=== PATIENT | female | born 1960 | race Caucasian/White ===

== ENCOUNTER → 2021-05-30 | Outpatient (CLI) | payer OTHER ==
[~2021-05-30] MED LIST: NORCO 5-325 TA1 EACH PO; ZOFRAN ODT 4 MG4 MG SL
== END ==
LOC: CT 14:30
DX: E83.52 Hypercalcemia (principal); R91.8 Other nonspecific abnormal finding of lung field; D17.79 Benign lipomatous neoplasm of other sites
CPT/HCPCS: 71260; Q9967

== ENCOUNTER → 2021-08-01 | Outpatient (CLI) | payer OTHER | LOC: LAB 07:19 | DX: E83.52 Hypercalcemia (principal) | CPT/HCPCS: 36415; 82330; 82397; 83970; 84100 ==

== ENCOUNTER → 2021-10-31 | Outpatient (CLI) | payer OTHER ==
[2021-10-31 08:42] LABS: HEMOGLOBIN 18.6 gm/dl (12.3-15.3); RED BLOOD COUNT 6.23 M/UL (4.00-5.10); WHITE BLOOD COUNT 10.5 K/UL (4.5-11.0)
[2021-11-01 08:14] LABS: ESTIM. AVG GLU (EAG) 180 mg/dL (.); HEMOGLOBIN A1C 7.9 % (4.8-5.6)
[2021-11-01 09:15] LABS: FOLATE (FOLIC ACID), SERUM 13.1 ng/mL (>3.0); VITAMIN D, 25-HYDROXY 28.6 ng/mL (30.0-100.0)
[2021-11-01 10:15] LABS: A/G RATIO 1.5 (1.2-2.2); ALKALINE PHOSPHATASE, S 89 IU/L (44-121); ALT (SGPT) 16 IU/L (0-32); AST (SGOT) 21 IU/L (0-40); BILIRUBIN, TOTAL 0.5 mg/dL (0.0-1.2); BUN 20 mg/dL (8-27); BUN/CREATININE RATIO 28 (12-28); CALCIUM, SERUM 11.1 mg/dL (8.7-10.3); CARBON DIOXIDE, TOTAL 21 mmol/L (20-29); CHLORIDE, SERUM 99 mmol/L (96-106); CHOLESTEROL, TOTAL 119 mg/dL (100-199); CREATININE, SERUM 0.72 mg/dL (0.57-1.00); EGFR IF AFRICN AM 104 (>59); EGFR IF NONAFRICN AM 90 (>59); GLOBULIN, TOTAL 3.1 g/dL (1.5-4.5); GLUCOSE, SERUM 133 mg/dL (65-99); HDL CHOLESTEROL 29 mg/dL (>39); LDL CHOLESTEROL CALC 31 mg/dL (0-99); LDL/HDL RATIO 1.1 ratio (0.0-3.2); POTASSIUM, SERUM 4.3 mmol/L (3.5-5.2); PROTEIN, TOTAL, SERUM 7.7 g/dL (6.0-8.5); SODIUM, SERUM 138 mmol/L (134-144); T. CHOL/HDL RATIO 4.1 ratio (0.0-4.4); TRIGLYCERIDES 415 mg/dL (0-149)
[2021-11-01 13:15] LABS: CREATININE, URINE 16.2 mg/dL (Not Estab.)
== END ==
LOC: LAB 07:50
PROVIDERS: Internal Medicine
DX: D75.1 Secondary polycythemia (principal); E78.5 Hyperlipidemia, unspecified; E55.9 Vitamin D deficiency, unspecified; R53.83 Other fatigue; I10 Essential (primary) hypertension; E11.9 Type 2 diabetes mellitus without complications
CPT/HCPCS: 36415; 80053; 80061; 82043; 82330; 82570; 82607; 82746; 83036; 84443; 85025

== ENCOUNTER → 2021-11-24 | Outpatient (CLI) | payer OTHER | LOC: KOH-I 11-21 13:30 → CT 09:00 | DX: R91.8 Other nonspecific abnormal finding of lung field (principal); D17.5 Benign lipomatous neoplasm of intra-abdominal organs | CPT/HCPCS: 71260; Q9967 ==

== ENCOUNTER → 2022-01-31 | Outpatient (CLI) | payer OTHER ==
[2022-01-31 09:18] LABS: HEMOGLOBIN 18.3 gm/dl (12.3-15.3); RED BLOOD COUNT 5.95 M/UL (4.00-5.10); WHITE BLOOD COUNT 11.4 K/UL (4.5-11.0)
[2022-01-31 10:02] LABS: BUN/CREATININE RATIO 30 (0-10)
== END ==
LOC: LAB 08:46
PROVIDERS: Internal Medicine
DX: E83.52 Hypercalcemia (principal); D75.1 Secondary polycythemia; E78.5 Hyperlipidemia, unspecified; E11.9 Type 2 diabetes mellitus without complications
CPT/HCPCS: 36415; 80053; 80061; 82330; 83036; 83970; 85025

== ENCOUNTER → 2022-04-27 | Outpatient (CLI) | payer OTHER ==
[2022-04-27 08:31] LABS: HEMOGLOBIN 17.6 gm/dl (12.3-15.3); RED BLOOD COUNT 5.78 M/UL (4.00-5.10); WHITE BLOOD COUNT 10.1 K/UL (4.5-11.0)
[2022-04-27 08:52] LABS: BUN/CREATININE RATIO 23 (0-10)
[2022-04-28 09:13] LABS: DHEA-SULFATE 95.6 ug/dL (29.4-220.5)
[2022-04-30 13:09] LABS: ALBUMIN 3.6 g/dL (2.9-4.4); ALPHA-1-GLOBULIN 0.3 g/dL (0.0-0.4); BETA GLOBULIN 1.1 g/dL (0.7-1.3); GLOBULIN, TOTAL 3.5 g/dL (2.2-3.9); M-SPIKE Not Observed g/dL (Not Observed); PROTEIN, TOTAL, SERUM 7.1 g/dL (6.0-8.5)
[2022-05-01 13:09] LABS: M-SPIKE, % Not Observed % (Not Observed); PROTEIN,TOTAL,URINE 5.6 mg/dL (Not Estab.)
== END ==
LOC: LAB 07:49
PROVIDERS: Internal Medicine; Nurse Practitioner Family
DX: E83.52 Hypercalcemia (principal); D17.79 Benign lipomatous neoplasm of other sites; D75.1 Secondary polycythemia; E11.9 Type 2 diabetes mellitus without complications; I10 Essential (primary) hypertension
CPT/HCPCS: 36415; 80053; 82024; 82088; 82306; 82330; 82397; 82627; 82652; 83036; 83835; 83970; 84100; 84155; 84156; 84165; 84166; 84244; 85025

== ENCOUNTER → 2022-06-07 | Outpatient (CLI) | payer OTHER ==
[2022-06-08 09:16] LABS: CORTISOL 1.7 ug/dL (.); PROLACTIN 3.6 ng/mL (4.8-23.3)
== END ==
LOC: LAB 07:36
PROVIDERS: Nurse Practitioner Family
DX: E83.52 Hypercalcemia (principal)
CPT/HCPCS: 36415; 82330; 82533; 82565; 84146; 84244; 84520